=== PATIENT | female | born 1990 | race Caucasian/White ===

== ENCOUNTER 2016-12-24 20:01 | Emergency (ER) | payer OTHER ==
[~2016-12-24] VITALS: Ht 162.6 cm; Wt 77.0 kg
[~2016-12-24 20:01] MED LIST: IBUP-232 PO; PHEN37.5 PO
[2016-12-24 20:02] VITALS: BP 139/78; PULSE 75; RESP 16; TEMP 97.4; O2SAT 100
[2016-12-24] MEDS ORDERED: SODIUM CHLOR 0.9% 1000 ML INJ 1,000 ML IV SCH (22:22)
--- NOTE | 2016-12-24 22:22 | PD ---
HPI Chief Complaint: GI Complaint Time Seen by Provider: 22:19 Travel History International Travel<30 days: No Contact w/Intl Traveler<30days: No Traveled to known affect area: No History of Present Illness HPI The patient is a 26-year-old female that comes in with periumbilical abdominal pain, nausea, vomiting and diarrhea for 2 days. Patient states that her mother has the same symptoms. She states there is no possibility of . She denies any history of recent foreign travel, well water ingestion, recent antibiotics or history of bowel problems like regional enteritis or also colitis with herself or her family members. PFSH Past Medical History Diminished Hearing: No Reproductive: Yes (POLYCYSTIC OVARIES) Immunizations Current: Yes Tetanus Vaccination: Unknown Influenza Vaccination: No ?: Unknown Past Surgical History Section: Yes (X1) Social History Alcohol Use: No Tobacco Use: No Substance Use: No Allergies-Medications (Allergen,Severity, Reaction): Coded Allergies: No Known Allergies (Unverified , 12/24/16) Reported Meds & Prescriptions Reported Meds & Active Scripts Active Phenergan (Promethazine HCl) 25 Mg Tab 25 Mg PO Q6H PRN Review of Systems Except as stated in HPI: all other systems reviewed are Neg Physical Exam Narrative GENERAL: The patient is alert, oriented 3 minimally dehydrated appearing in minimal apparent distress with her abdominal discomfort. Her vital signs are normal. SKIN: Warm and dry. HEAD: Atraumatic. Normocephalic. EYES: Pupils equal and round. No scleral icterus. No injection or drainage. ENT: No nasal bleeding or discharge. Mucous membranes pink and moist. NECK: Trachea midline. No JVD. CARDIOVASCULAR: Regular rate and rhythm. No murmur appreciated. RESPIRATORY: No accessory muscle use. Clear to auscultation. Breath sounds equal bilaterally. GASTROINTESTINAL: Abdomen soft, with slight tenderness to direct palpation in the periumbilical area, nondistended. Hepatic and splenic margins not palpable. No guarding or rebound is present. MUSCULOSKELETAL: No obvious deformities. No clubbing. No cyanosis. No edema. NEUROLOGICAL: Awake and alert. No obvious cranial nerve deficits. Motor grossly within normal limits. Normal speech. PSYCHIATRIC: Appropriate mood and affect; insight and judgment normal. Data Data Last Documented VS Vital Signs Date Time Temp Pulse Resp B/P Pulse Ox O2 Delivery O2 Flow Rate FiO2 12/24/16 23:47 77 16 128/72 98 Room Air 12/24/16 20:02 97.4 Orders Complete Blood Count With Diff (12/24/16 22:22) Comprehensive Metabolic Panel (12/24/16 22:22) Lipase (12/24/16 22:22) Iv Access Insert/Monitor (12/24/16 22:22) Ecg Monitoring (12/24/16 22:22) Oximetry (12/24/16 22:22) Ondansetron Inj (Zofran Inj) (12/24/16 22:30) Sodium Chlor 0.9% 1000 Ml Inj (Ns 1000 M (12/24/16 22:22) Sodium Chloride 0.9% Flush (Ns Flush) (12/24/16 22:30) Labs Laboratory Tests Test 12/24/16 22:40 White Blood Count 7.5 TH/MM3 Red Blood Count 4.95 MIL/MM3 Hemoglobin 14.8 GM/DL Hematocrit 43.3 % Mean Corpuscular Volume 87.5 FL Mean Corpuscular Hemoglobin 30.0 PG Mean Corpuscular Hemoglobin 34.3 % Concent Red Cell Distribution Width 13.4 % Platelet Count 239 TH/MM3 Mean Platelet Volume 7.4 FL Neutrophils (%) (Auto) 55.0 % Lymphocytes (%) (Auto) 33.2 % Monocytes (%) (Auto) 7.3 % Eosinophils (%) (Auto) 4.1 % Basophils (%) (Auto) 0.4 % Neutrophils # (Auto) 4.1 TH/MM3 Lymphocytes # (Auto) 2.5 TH/MM3 Monocytes # (Auto) 0.5 TH/MM3 Eosinophils # (Auto) 0.3 TH/MM3 Basophils # (Auto) 0.0 TH/MM3 CBC Comment DIFF FINAL Differential Comment Sodium Level 139 MEQ/L Potassium Level 3.7 MEQ/L Chloride Level 105 MEQ/L Carbon Dioxide Level 26.9 MEQ/L Anion Gap 7 MEQ/L Blood Urea Nitrogen 13 MG/DL Creatinine 0.81 MG/DL Estimat Glomerular Filtration 86 ML/MIN Rate Random Glucose 82 MG/DL Calcium Level 9.5 MG/DL Total Bilirubin 0.6 MG/DL Aspartate Amino Transf 50 U/L (AST/SGOT) Alanine Aminotransferase 60 U/L (ALT/SGPT) Alkaline Phosphatase 79 U/L Total Protein 8.9 GM/DL Albumin 4.4 GM/DL Lipase 134 U/L MDM Medical Decision Making Medical Screen Exam Complete: Yes Emergency Medical Condition: Yes Medical Record Reviewed: Yes Interpretation(s) The CBC is normal and the complete metabolic profile shows a normal lipase and GFR of 86 and AST of 50 and ALT of 60. Differential Diagnosis Viral gastroenteritis, electrolyte disorder, bacterial enteritis, colitis, pancreatitis, cholecystitis, UTIunlikely Narrative Course It is now 1214 and the patient is successfully drinking Gatorade. The low white count suggest viral etiology and the patient appears to have gastroenteritis clinically. Impression: Viral gastroenteritis Plan: The patient be given Phenergan and a 4 day work excuse. She needs to drink clear liquids for the first day or 2. Sepsis Criteria Sepsis Criteria (SIRS+source): Infect source susp/known Diagnosis Primary Impression: Viral gastroenteritis Additional Instructions: Drink clear liquids like Gatorade for the first day or 2. There is no need for solid foods and avoid any fatty foods like milk, dairy products and greasy foods like hamburger and bur[place] fries. Med/Other Pt SpecificInfo: Prescription(s) given Scripts Promethazine (Phenergan)25 Mg Tab25 Mg PO Q6H PRN (Nausea/Vomiting) #28 TAB Ref 0 Prov:Waldo Mcdonnell MD 12/25/16 Disposition: 01 DISCHARGE HOME Condition: Stable Waldo Mcdonnell MD Dec 24, 2016 22:22
[2016-12-24] MEDS ORDERED: SODIUM CHLORIDE 0.9% FLUSH 10 ML FLUSH IV FLUSH PRN (22:30)
[2016-12-24] MEDS ORDERED: ONDANSETRON HCL 4 MG/2 ML VIAL IVP ONE (22:30)
[2016-12-24 22:54] VITALS: RESP 16
[2016-12-24 23:10] LABS: AUTOMATED NEUTROPHIL # 4.1 TH/MM3 (1.8-7.7); BASOPHIL % 0.4 % (0.0-2.0); EOSINOPHIL # 0.3 TH/MM3 (0-0.4); EOSINOPHIL % 4.1 % (0.0-4.0); HEMATOCRIT 43.3 % (35.0-46.0); HEMO FLAGS DIFF FINAL; LYMPH % 33.2 % (9.0-44.0); LYMPHOCYTE # 2.5 TH/MM3 (1.0-4.8); MEAN CELL VOLUME 87.5 FL (80.0-100.0); MEAN CORPUSCULAR HGB CONC 34.3 % (32.0-36.0); MONO % 7.3 % (0.0-8.0); PLATELET COUNT 239 TH/MM3 (150-450); RED BLOOD COUNT 4.95 MIL/MM3 (4.00-5.30); RED CELL DISTRIBUTION WIDTH 13.4 % (11.6-17.2); WHITE BLOOD COUNT 7.5 TH/MM3 (4.0-11.0)
[2016-12-24 23:12] LABS: ALKALINE PHOSPHATASE 79 U/L (45-117); ALT (GPT) 60 U/L (10-53); ANION GAP 7 MEQ/L (5-15); AST (GOT) 50 U/L (15-37); BICARBONATE 26.9 MEQ/L (21.0-32.0); BLOOD UREA NITROGEN 13 MG/DL (7-18); CHLORIDE 105 MEQ/L (98-107); GLOMERULAR FILTRATION RATE 86 ML/MIN (>89); POTASSIUM 3.7 MEQ/L (3.5-5.1); SODIUM (NA) 139 MEQ/L (136-145); TOTAL BILIRUBIN ADULT 0.6 MG/DL (0.2-1.0)
[2016-12-24 23:47] VITALS: BP 128/72; PULSE 77; RESP 16; O2SAT 98
[2016-12-25] MEDS ORDERED: PROM25TA5 PO (00:15)
== END 2016-12-25 00:42 | disposition home or self-care (01) ==
LOC: NEPC 20:01
DX: A08.4 Viral intestinal infection, unspecified (principal)
CPT/HCPCS: 80053; 83690; 85025; 96361; 96374; 99284; J2405; J7030

== ENCOUNTER 2017-06-05 16:07 | Emergency (ER) | payer BC, OTHER ==
[~2017-06-05] VITALS: Ht 162.6 cm; Wt 85.0 kg
[~2017-06-05 16:07] MED LIST changes: -IBUP-232 PO; -PHEN37.5 PO; +PROM25TA5 PO
[2017-06-05 16:08] VITALS: BP 124/82; PULSE 84; RESP 17; TEMP 98.4; O2SAT 97
[2017-06-05 16:57] LABS: BLOOD, URINE NEG (NEG); GLUCOSE,URINE NEG (NEG); KETONE, URINE NEG (NEG); MUCUS URINE FEW /lpf (OCC); NITRITE,URINE NEG (NEG); PH, URINE 5.5 (5.0-8.5); SQUAMOUS EPITHELIAL CELL URINE 1 /hpf (0-5); URINE COLOR YELLOW (YELLW/STRAW)
[2017-06-05 16:58] LABS: COMMENT (UR) CULT NOT INDICATED; CULTURE IF INDICATED CULT NOT INDICATED
--- NOTE | 2017-06-05 17:03 | PD ---
HPI Chief Complaint: Abdominal Pain Time Seen by Provider: 16:59 Travel History International Travel<30 days: No Contact w/Intl Traveler<30days: No Traveled to known affect area: No History of Present Illness HPI 26-year-old female came to the emergency room with history of some abdominal discomfort and gas. She mostly points to her right upper quadrant and epigastric region. She says the pain is not severe but just feels uncomfortable. She also hasn't had bowel movement in 7 days. Her appetite has been normal and she's been eating 3 meals a day. No history of nausea or vomiting. Vital signs were stable. Patient went to the urgent care but was sent here because she told them she is . Patient found out 1 week ago that she is . Her last menstrual period was May 03. She hasn't been having any lower abdominal pain or spotting. No history of dysuria. Patient had her blood work and urine sent in the triage before coming in. Patient is A0. PFSH Past Medical History Narrative Medical List of her past medical, surgical, social and family history was reviewed from the nursing note. Diminished Hearing: No Reproductive: Yes (POLYCYSTIC OVARIES) Immunizations Current: Yes ?: Past Surgical History Section: Yes (X1) Social History Alcohol Use: No Tobacco Use: No Substance Use: No Allergies-Medications (Allergen,Severity, Reaction): Coded Allergies: No Known Allergies (Unverified , 06/05/17) Comments No known drug allergies. Reported Meds & Prescriptions Reported Meds & Active Scripts Active Miralax Powder (Polyethylene Glycol 3350 Powder) 17 Gm Powd 17 Gm PO DAILY Mix and dissolve one measuring cap-ful (17 grams) in water or juice. Narrative Medication List of her home medications reviewed from the snf. Review of Systems Except as stated in HPI: all other systems reviewed are Neg Physical Exam Narrative GENERAL: Awake, alert, obese, no obvious distress SKIN: Focused skin assessment warm/dry. HEAD: Atraumatic. Normocephalic. EYES: Pupils equal and round. No scleral icterus. No injection or drainage. ENT: No nasal bleeding or discharge. Mucous membranes pink and moist. NECK: Trachea midline. No JVD. CARDIOVASCULAR: Regular rate and rhythm. No murmur appreciated. RESPIRATORY: No accessory muscle use. Clear to auscultation. Breath sounds equal bilaterally. GASTROINTESTINAL: Abdomen soft, non-tender, nondistended. Hepatic and splenic margins not palpable. MUSCULOSKELETAL: No obvious deformities. No clubbing. No cyanosis. No edema. NEUROLOGICAL: Awake and alert. No obvious cranial nerve deficits. Motor grossly within normal limits. Normal speech. PSYCHIATRIC: Appropriate mood and affect; insight and judgment normal. Data Data Last Documented VS Vital Signs Date Time Temp Pulse Resp B/P (MAP) Pulse Ox O2 Delivery O2 Flow Rate FiO2 06/05/17 18:08 06/05/17 16:56 16 06/05/17 16:08 98.4 84 97 Orders Orders Urinalysis - C+S If Indicated (06/05/17 16:14) Ed Urine Pregnancytest Poc (06/05/17 16:14) Basic Metabolic Panel (Bmp) (06/05/17 16:14) Beta Hcg (Quant/Titer) (06/05/17 16:39) Labs Laboratory Tests Test 06/05/17 16:27 06/05/17 16:28 Urine Color YELLOW Urine Turbidity CLEAR Urine pH 5.5 Urine Specific [place] 1.019 Urine Protein NEG mg/dL Urine Glucose (UA) NEG mg/dL Urine Ketones NEG mg/dL Urine Occult Blood NEG Urine Nitrite NEG Urine Bilirubin NEG Urine Urobilinogen LESS THAN 2.0 MG/DL Urine Leukocyte Esterase NEG Urine RBC LESS THAN 1 /hpf Urine WBC 1 /hpf Urine Squamous Epithelial Cells 1 /hpf Urine Mucus FEW /lpf Microscopic Urinalysis Comment CULT NOT INDICATED Blood Urea Nitrogen 11 MG/DL Creatinine 0.93 MG/DL Random Glucose 89 MG/DL Calcium Level 9.9 MG/DL Sodium Level 141 MEQ/L Potassium Level 4.0 MEQ/L Chloride Level 106 MEQ/L Carbon Dioxide Level 26.2 MEQ/L Anion Gap 9 MEQ/L Estimat Glomerular Filtration Rate 73 ML/MIN Human Chorionic Gonadotropin, Quant 241 MIU/ML [facility] Medical Decision Making Medical Screen Exam Complete: Yes Emergency Medical Condition: Yes Medical Record Reviewed: Yes Differential Diagnosis Constipation, first trimester Narrative Course 5:25 PM UA is within normal limits. Awaiting for the blood test result. If everything is normal patient will be discharged home on MiraLAX. She has an appointment with an OB next Wednesday. She also has been taking vitamins every day. Procedures EKG Prior to Arrival: No Diagnosis Primary Impression: Constipation Qualified Codes: K59.00 - Constipation, unspecified Additional Impression: First trimester Referrals: Primary Care Physician Additional Instructions: Please follow-up with your OB as per your appointment. Take the medication as per the prescription direction. Drink lots of fluid and high-fiber diet. Continue taking her vitamins. Return to the ER if the condition worsens or any other new concerns. Med/Other Pt SpecificInfo: Prescription(s) given Scripts Polyethylene Glycol 3350 Powder (Miralax Powder) 17 Gm Powd 17 GM PO DAILY for Constipation, #1 CAN 0 Refills Mix and dissolve one measuring cap-ful (17 grams) in water or juice. Prov: Liborio Mcintyre MD 06/05/17 Disposition: 01 DISCHARGE HOME Condition: Stable Liborio Mcintyre MD Jun 05, 2017 17:03
[2017-06-05] MEDS ORDERED: MIRA3350 PO (17:27)
[2017-06-05 17:32] LABS: BICARBONATE 26.2 MEQ/L (21.0-32.0)
[2017-06-05 18:03] LABS: BETA HCG QUANT 241 MIU/ML (0-5)
== END 2017-06-05 18:10 | disposition home or self-care (01) ==
LOC: NEPD 16:07
DX: O99.611 Diseases of the digestive system complicating pregnancy, first trimester (principal); K59.00 Constipation, unspecified; Z3A.01 Less than 8 weeks gestation of pregnancy
CPT/HCPCS: 80048; 81001; 84702; 84703; 99283

== ENCOUNTER 2017-06-09 12:57 | Emergency (ER) | payer BC, OTHER ==
[~2017-06-09] VITALS: Ht 162.6 cm; Wt 83.0 kg
[~2017-06-09 12:57] MED LIST changes: +MIRA3350 PO; -PROM25TA5 PO
[2017-06-09 13:09] VITALS: BP 133/62; PULSE 99; RESP 16; TEMP 98; O2SAT 100
[2017-06-09 13:34] LABS: BLOOD, URINE NEG (NEG); GLUCOSE,URINE NEG (NEG); KETONE, URINE 15 mg/dL (NEG); NITRITE,URINE NEG (NEG)
[2017-06-09 13:43] LABS: METHOD OF COLLECTION CLEAN CATCH; URINE COLOR YELLOW (YELLW/STRAW)
[2017-06-09 13:44] LABS: COMMENT (UR) CULT NOT INDICATED; CULTURE IF INDICATED CULT NOT INDICATED; RBC, URINE 0-3 /hpf (0-3); SQUAMOUS EPITHELIAL CELL URINE 0-5 /hpf (0-5); WBC, URINE 0-2 /hpf (0-5)
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
== END 2017-06-09 14:00 | disposition home or self-care (01) ==
LOC: PHED 12:57
DX: O26.891 Other specified pregnancy related conditions, first trimester (principal); M54.5 Low back pain; Z3A.01 Less than 8 weeks gestation of pregnancy
CPT/HCPCS: 81001; 84703; 99283

== ENCOUNTER 2017-07-28 15:49 | Emergency (ER) | payer BC, OTHER ==
[~2017-07-28] VITALS: Ht 162.6 cm; Wt 84.0 kg
[2017-07-28 15:51] VITALS: BP 134/63; PULSE 111; RESP 18; TEMP 98.8; O2SAT 100
[2017-07-28] MEDS ORDERED: METF500T PO (16:15)
--- NOTE | 2017-07-28 16:18 | PD ---
HPI . Vaginal discharge Chief Complaint: Related Problem Time Seen by Provider: 16:03 Travel History International Travel<30 days: No Contact w/Intl Traveler<30days: No Traveled to known affect area: No History of Present Illness HPI This patient presents complaining with vaginal discharge. She is about 12 weeks . She states that she has had the discharge for a while. She states that she has talked with her OB about it and has been told that it is normal to have a discharge in . She was very concerned about it today and called office. They instructed her to come in to us for evaluation. She reports no issues related to the such as pelvic pain or vaginal bleeding. She states that she has already had an ultrasound and is scheduled for another ultrasound tomorrow. She has noted no modifying factors regarding the discharge. It has been present for weeks and is getting progressively worse. However, it is very mild. [facility] Past Medical History Narrative Medical PROM at 21 weeks with her first . Diminished Hearing: No Reproductive: Yes (POLYCYSTIC OVARIES) Immunizations Current: Yes ?: LMP: 05/03/17 Past Surgical History Section: Yes (X1) Social History Alcohol Use: No Tobacco Use: No Substance Use: No Allergies-Medications (Allergen,Severity, Reaction): Coded Allergies: No Known Allergies (Unverified , 07/28/17) Reported Meds & Prescriptions Reported Meds & Active Scripts Active Miralax Powder (Polyethylene Glycol 3350 Powder) 17 Gm Powd 17 Gm PO DAILY Mix and dissolve one measuring cap-ful (17 grams) in water or juice. Reported Metformin (Metformin HCl) 500 Mg Tab 1,000 Mg PO BIDPC Review of Systems Except as stated in HPI: all other systems reviewed are Neg Genitourinary: Positive: Discharge, No: Urgency, Frequency, Dysuria, Hematuria , Decreased Urinary Output, Pelvic Pain, Vaginal Bleeding Physical Exam Narrative GENERAL: Patient is awake and alert. She is very anxious. SKIN: Warm and dry with no rash or lesions. HEAD: Normocephalic/atraumatic. EYES: Pupils are equal. Extraocular movements are intact. NECK: Full range of motion. CARDIOVASCULAR: Regular rate and rhythm. RESPIRATORY: Nonlabored. : She has some yellow crusting on the external genitalia. She has a malodorous discharge. The cervical os is closed. The patient declined bimanual examination. MUSCULOSKELETAL: Atraumatic. NEUROLOGICAL: Nonfocal. PSYCHIATRIC: Appropriate mood and affect. Data Data Last Documented VS Vital Signs Date Time Temp Pulse Resp B/P (MAP) Pulse Ox O2 Delivery O2 Flow Rate FiO2 07/28/17 15:51 98.8 111 18 134/63 (86) 100 Room Air Orders Orders Gc And Chlamydia Pcr (07/28/17 16:03) Wet Prep Profile (07/28/17 16:03) Ed Poc Ultrasound (07/28/17 16:03) Labs Laboratory Tests Test 07/28/17 16:16 Clue Cells (Wet Prep) NS Vaginal Trichomonas (Wet Prep) NS Vaginal Yeast (Wet Prep) PRESENT MDM Medical Decision Making Medical Screen Exam Complete: Yes Emergency Medical Condition: Yes Differential Diagnosis Differential diagnosis of vaginal discharge includes but is not limited to physiologic discharge, yeast infection, bacterial vaginosis, sexually transmitted disease. Narrative Course This is a patient who is 12 weeks who has suffered previous PROM at 21 weeks gestation who presents complaining with vaginal discharge. Wet prep and GC chlamydial DNA probe are pending. wet prep>>yeast Diagnosis Primary Impression: Yeast infection Patient Instructions: Antifungals (Into the vagina), General Instructions Med/Other Pt SpecificInfo: Prescription(s) given Scripts Miconazole 3 Vaginal Cream (Monistat 3 Vaginal Cream) 4 % Cream 1 APPL VAGINAL HS for Infection, #1 BOX 0 Refills Prov: Madeline Hernandez MD 07/28/17 Disposition: 01 DISCHARGE HOME Condition: Stable Madeline Hernandez MD Jul 28, 2017 16:18
[2017-07-28] MEDS ORDERED: MICO1CRE2 VAGINAL (17:03)
== END 2017-07-28 17:23 | disposition home or self-care (01) ==
LOC: NEPD 15:49
DX: O98.811 Other maternal infectious and parasitic diseases complicating pregnancy, first trimester (principal); B37.9 Candidiasis, unspecified; Z3A.12 12 weeks gestation of pregnancy; Z79.899 Other long term (current) drug therapy
CPT/HCPCS: 87210; 87491; 87591; 99283